=== PATIENT | male | born 1995 | race Caucasian/White ===

== ENCOUNTER 2021-04-03 12:03 | Emergency (ER) | payer OTHER, SELFPAY ==
[2021-04-03 12:15] VITALS: BP 140/91; PULSE 88; RESP 20; TEMP 37.3; O2SAT 99
--- NOTE | 2021-04-03 12:38 | ED.SKABFB ---
HPI - Skin/Abscess/Foreign Bdy General Chief complaint: Skin/Abscess/Foreign Body Stated complaint: left elbow swollen Time Seen by Provider: 04/03/21 12:39 Source: patient and RN notes reviewed Mode of arrival: ambulatory Limitations: no limitations History of Present Illness HPI narrative: 26-year-old male presents with concern for red, swollen, warm, tender elbow. Reports symptoms started yesterday. Reports a week ago he went on a float trip and got a small abrasion to the elbow. He denies any joint pain, pain with flexion. Reports mild discomfort with hyperextension of the elbow. He reports chills last night. He denies fever, body aches, drainage from the area. MD complaint: discoloration Related Data Allergies Allergy/AdvReac Type Severity Reaction Status Date / Time azithromycin Allergy Mild Unknown Verified 04/03/21 12:23 diphenhydramine Allergy Mild Anaphylactic Verified 04/03/21 12:23 Shock erythromycin base Allergy Mild Unknown Verified 04/03/21 12:23 eucalyptus Allergy Mild Unknown Verified 04/03/21 12:23 menthol Allergy Mild Unknown Verified 04/03/21 12:23 Penicillins Allergy Mild Unknown Verified 04/03/21 12:23 petrolatum,white Allergy Mild Unknown Verified 04/03/21 12:23 Sulfa (Sulfonamide Allergy Mild Unknown Verified 04/03/21 12:23 Antibiotics) turpentine oil Allergy Mild Unknown Verified 04/03/21 12:23 CAMPHOR Allergy Mild Unknown Uncoded 04/03/21 12:23 PURPLE DYE Allergy Mild Unknown Uncoded 04/03/21 12:23 Review of Systems Review of Systems: CONSTITUTIONAL: Denies malaise, sweats, or fever. Reports chills ENT: Denies swollen lips, swollen SKIN: Reports warm, red, tender left elbow MUSCULOSKELETAL: Denies muscle skeletal pain, decreased range of motion, pain with range of motion NEUROLOGIC: Denies numbness, weakness All systems reviewed & are unremarkable except as noted in HPI and below PMFSH Comments At time of signature, agree with nursing past medical, surgical, social and family history. There is no relevant family history pertinent to the presenting complaint Exam Narrative: GENERAL: Well-appearing, well-nourished, and in no acute distress. HEAD: Normocephalic, atraumatic. EYES: PERRLA, conjunctivae clear NECK: Supple. CHEST: Speaks in full sentences. No respiratory distress. HEART: Regular rate and rhythm. Normal and equal peripheral pulses. EXTREMITIES: Left elbow has normal strength and sensation, normal range of motion. No ecchymosis. 5/5 strength with elbow flexion and extension. Normal sensation with sensitivity to light touch and pain. No point tenderness. No open wounds, no skin tenting, no devitalized tissue or atrophy, no trophic changes, no obvious deformity, alignment normal, nearby joints and structures intact. Distal pulses palpable and equal bilaterally, skin warm, dry, pink. Capillary refill less than 3 seconds. SKIN: Warm, dry, no rash. 20 cm x 10 cm patch of erythema, warmth, mild induration without edema or fluctuation consistent with cellulitis NEURO: Alert and oriented x3. PSYCH: Normal mood and affect Course Course Emergency Course: Patient is aware of diagnosis, understands and agrees to treatment plan. Anticipatory guidance given. Patient agrees to follow-up as directed and is aware of reasons to seek care at the emergency department. Portions of this record may have been created with voice recognition software Vital Signs Vital signs: Vital Signs Temperature 99.2 F 04/03/21 12:15 Pulse Rate 88 04/03/21 12:15 Respiratory Rate 20 04/03/21 12:15 Blood Pressure 140/91 H 04/03/21 12:15 Pulse Oximetry 99 04/03/21 12:15 Temperature 99.2 F 04/03/21 12:15 Pulse Rate 88 04/03/21 12:15 Respiratory Rate 20 04/03/21 12:15 Blood Pressure 140/91 H 04/03/21 12:15 Pulse Oximetry 99 04/03/21 12:15 Reviewed. MDM - Skin/Abscess/Foreign Bdy MDM Narrative Medical decision making narrative: Exam findings show no acute concerns or changes; patie
== END 2021-04-03 13:06 | disposition home or self-care (01) ==
PROVIDERS: Emergency Provider Nurse Practitioner
DX: L03.114 Cellulitis of left upper limb (principal)
CPT/HCPCS: 99213; G0463

== ENCOUNTER 2022-12-04 08:29 | Emergency (ER) | payer OTHER, SELFPAY ==
[2022-12-04 08:36] VITALS: BP 145/80; PULSE 62; RESP 16; TEMP 36.6; O2SAT 98
--- NOTE | 2022-12-04 08:54 | ED.GENADULT ---
HPI - General Adult General Chief complaint: Upper Respiratory Infection Stated complaint: Sore Throat Source: patient Mode of arrival: ambulatory Limitations: no limitations History of Present Illness HPI narrative: Patient presents for evaluation of sore throat for the last few days. Symptoms are worse in the morning. Reports a throbbing sensation in his bilateral ears following onset of sore throat. No fever, chills, nausea, vomiting, respiratory symptoms. His children recently had strep pharyngitis. He does not smoke. He has taken ibuprofen her symptoms with some improvement thereafter. He has several listed allergies however he states he only had these antibiotics in childhood. He has not had any abx recently to know his response. Related Data Allergies Allergy/AdvReac Type Severity Reaction Status Date / Time azithromycin Allergy Mild Unknown Verified 04/03/21 12:23 diphenhydramine Allergy Mild Anaphylactic Verified 04/03/21 12:23 Shock erythromycin base Allergy Mild Unknown Verified 04/03/21 12:23 eucalyptus Allergy Mild Unknown Verified 04/03/21 12:23 menthol Allergy Mild Unknown Verified 04/03/21 12:23 Penicillins Allergy Mild Rash Verified 04/03/21 13:12 petrolatum,white Allergy Mild Unknown Verified 04/03/21 12:23 Sulfa (Sulfonamide Allergy Mild Unknown Verified 04/03/21 12:23 Antibiotics) turpentine oil Allergy Mild Unknown Verified 04/03/21 12:23 CAMPHOR Allergy Mild Unknown Uncoded 04/03/21 12:23 PURPLE DYE Allergy Mild Unknown Uncoded 04/03/21 12:23 Review of Systems Review of Systems: CONSTITUTIONAL: Denies fever, chills, or sweats. EYES: Denies visual changes, redness, or discharge. ENT: Reports sore throat and bilateral ear pain. Denies tinnitus and hearing loss. CARDIOVASCULAR: Denies chest pain, palpitations, or edema. RESPIRATORY: Denies cough or dyspnea. GASTROINTESTINAL: Denies abdominal pain, nausea, vomiting, or diarrhea. GENITOURINARY: Denies dysuria or hematuria. SKIN: Denies rash or itching. MUSCULOSKELETAL: Denies back pain, joint pain, or myalgia. NEUROLOGIC: Denies headache, numbness, dizziness, or weakness. PSYCHIATRIC: Denies anxiety or depression. [facility] Past Medical History Medical History No pertinent past medical history Surgical History Surgical History History of cholecystectomy History of tonsillectomy Family History Family History Mother Family history non-contributory Social History Social History Smoking status: Never smoker Substance use: never Living arrangements: with family Gender identity (if verbalized by the patient): Male Sexual Orientation (if Verbalized by the Patient): Straight or Heterosexual Spiritual care concerns: No Exam Narrative: GENERAL: Well-appearing, well-nourished, and in no acute distress. HEAD: Normocephalic, atraumatic. EYES: PERRLA and EOMI. ENT: Nares clear, no rhinorrhea or epistaxis. Mucous membranes moist. Posterior pharyngeal erythema without exudate. Tonsils are surgically absent. Uvula is midline. Bilateral TMs pearly wilkerson nonbulging NECK: Supple. No adenopathy or masses. No carotid bruits or JVD CHEST: Clear to auscultation. No respiratory distress. No wheezes rales or rhonchi HEART: Regular rate and rhythm. No murmur heard. Normal peripheral pulses. ABDOMEN: Soft, nontender, nondistended, normal active bowel sounds. EXTREMITIES: Normal range of motion. No edema. SKIN: Warm, dry, no rash. NEURO: No focal deficits. Alert and oriented x3. PSYCH: Normal mood and affect. Course Course Emergency Course: This is a 27-year-old male who presented for evaluation of sore throat after recent strep exposure. Rapid strep negative. Will treat for strep b
== END 2022-12-04 08:57 | disposition home or self-care (01) ==
PROVIDERS: Emergency Provider Nurse Practitioner
DX: J02.9 Acute pharyngitis, unspecified (principal); Z20.818 Contact with and (suspected) exposure to other bacterial communicable diseases
CPT/HCPCS: 87081; 87880; 99213; G0463

== ENCOUNTER 2023-03-04 10:15 | Emergency (ER) | payer OTHER, SELFPAY ==
[2023-03-04 10:26] VITALS: BP 126/63; PULSE 65; RESP 16; TEMP 36.6; O2SAT 100
--- NOTE | 2023-03-04 10:36 | ED.SKABFB ---
HPI - Skin/Abscess/Foreign Bdy General Chief complaint: Skin/Abscess/Foreign Body Stated complaint: Poison sergey History of Present Illness HPI narrative: Patient presents with an itchy rash to his face both arms and both lower legs. No shortness of breath no chest pain. Patient has not taken anything [id number] for his symptoms due to his allergies to Benadryl. Related Data Allergies Allergy/AdvReac Type Severity Reaction Status Date / Time azithromycin Allergy Mild Unknown Verified 03/04/23 10:36 diphenhydramine Allergy Mild Anaphylactic Verified 03/04/23 10:36 Shock erythromycin base Allergy Mild Unknown Verified 03/04/23 10:36 eucalyptus Allergy Mild Unknown Verified 03/04/23 10:36 menthol Allergy Mild Unknown Verified 03/04/23 10:36 Penicillins Allergy Mild Rash Verified 03/04/23 10:36 petrolatum,white Allergy Mild Unknown Verified 03/04/23 10:36 Sulfa (Sulfonamide Allergy Mild Unknown Verified 03/04/23 10:36 Antibiotics) turpentine oil Allergy Mild Unknown Verified 03/04/23 10:36 CAMPHOR Allergy Mild Unknown Uncoded 03/04/23 10:36 PURPLE DYE Allergy Mild Unknown Uncoded 04/03/21 12:23 Review of Systems Review of Systems: CONSTITUTIONAL: Denies fever, chills, or sweats. EYES: Denies visual changes, redness, or discharge. ENT: Denies rhinorrhea, congestion, sore throat, or otalgia. CARDIOVASCULAR: Denies chest pain, palpitations, or edema. RESPIRATORY: Denies cough or dyspnea. GASTROINTESTINAL: Denies abdominal pain, nausea, vomiting, or diarrhea. GENITOURINARY: Denies dysuria or hematuria. SKIN: Denies rash or itching. MUSCULOSKELETAL: Denies back pain, joint pain, or myalgia. NEUROLOGIC: Denies headache, numbness, or weakness. PSYCHIATRIC: Denies anxiety or depression. [facility] Past Medical History Medical History No pertinent past medical history Surgical History Surgical History History of cholecystectomy History of tonsillectomy Family History Family History Mother Family history non-contributory Social History Social History Smoking status: Never smoker Substance use: never Living arrangements: with family Gender identity (if verbalized by the patient): Male Sexual Orientation (if Verbalized by the Patient): Straight or Heterosexual Spiritual care concerns: No Exam Narrative: GENERAL: Well-appearing, well-nourished, and in no acute distress. HEAD: Normocephalic, atraumatic. EYES: PERRLA and EOMI. ENT: Nares clear, no rhinorrhea or epistaxis. Mucous membranes moist. NECK: Supple. CHEST: Clear to auscultation. No respiratory distress. HEART: Regular rate and rhythm. No murmur heard. Normal peripheral pulses. ABDOMEN: Soft, nontender, nondistended, normal active bowel sounds. EXTREMITIES: Normal range of motion. No edema. SKIN: Warm, dry, no rash.RASH CONSISTENT WITH RHUS DERMATITIS. LINEAR SOSA WITH WET LIKE APPEARS ON NEW AREAS. DIFFERENT STAGES PRESENT. REDNESS TO LESIONS. NO SIGNS OF INFECTION OR CELLULITIS/ABSCESS. NO VESICLES. NO ULCERATIONS. NO RAISED URTICARIAL LESIONS. NO LESIONS ALONG THE WAISTBAND OR IN WEB SPACES. NO BURROWS. NO PETECHIAE. To left side of face both arms and both lower extremities NEURO: No focal deficits. Alert and oriented x3. Daniele Coma Scale Eye Opening: Spontaneous 4 Daniele Coma Scale Motor: Obeys Commands 6 [place] Coma Scale Verbal: Oriented 5 Daniele Coma Scale Total 15 Course Course Level of Care: Express Care Visit Vital Signs Vital signs: Vital Signs Temperature 36.6 C 03/04/23 10:26 Pulse Rate 65 03/04/23 10:26 Respiratory Rate 16 03/04/23 10:26 Blood Pressure 126/63 03/04/23 10:26 Pulse Oximetry 100 03/04/23 10:26 Oxygen Delivery Room Air 03/04/23 10:26
== END 2023-03-04 10:50 | disposition home or self-care (01) ==
PROVIDERS: Emergency Provider Nurse Practitioner Family
DX: L23.7 Allergic contact dermatitis due to plants, except food (principal)
CPT/HCPCS: 99213; G0463